=== PATIENT | female | born 1940 | race Caucasian/White ===

== ENCOUNTER 2016-07-14 09:52 | Outpatient (CLI) | END 2016-07-14 09:53 | disposition home or self-care (01) | LOC: NONPT 09:52 | PROVIDERS: ATTEND Family Medicine | DX: R19.7 Diarrhea, unspecified (principal) | CPT/HCPCS: 87015; 87045; 87493; 87899 ==

== ENCOUNTER 2016-12-05 11:56 | Outpatient (CLI) ==
--- NOTE | 2016-12-05 14:52 | MRI ---
EXAM: MRI right shoulder without contrast COMPARISON: None available. HISTORY: Posterior shoulder pain for 6 months. No known injury. TECHNIQUE: Multiplanar noncontrast MR images of the right shoulder were acquired using a 1.2 Fernanda magnet. FINDINGS: There is marked subscapularis tendinosis. Partial-thickness tear. Intrasubstance compon ent possible articular surface involvement involving the distal subscapularis involving approximatel y 50% of the tendon thickness. No full-thickness tear at that level. Moderately severe supraspinat us mild infraspinatus tendinosis with bursal surface fraying of the supraspinatus. Partial-thicknes s/rim rent tear involving insertional fibers of the supraspinatus measuring 3 mm medial to lateral d imension and involving approximally 50% of the tendon thickness. No definite full-thickness tear. Fluid in the subacromial/subdeltoid bursa. Limited assessment of the glenoid labrum on this non arthrographic study with grossly unremarkable a ppearance of the labrum. No paralabral cyst. Mild degenerative changes of the glenohumeral joint. No evidence of an acute fracture or dislocation. Physiologic amount of fluid within the joint. The long head of the biceps is located within the bicipital groove and is intact. Mild hypertrophic degenerative changes of the acromioclavicular joint without evidence of an os acro miale or abnormal widening of the acromioclavicular joint space. No soft tissue mass identified. IMPRESSION: 1. Moderate to marked rotator cuff tendinosis. Partial-thickness tearing of the supraspinatus and subscapularis as described without a full-thickness tear or tendon retraction. 2. Small amount of fluid in the subacromial/subdeltoid bursa. 3. Mild degenerative changes of the acromioclavicular joint.
== END 2016-12-05 11:57 | disposition home or self-care (01) ==
LOC: RAD 11:56
PROVIDERS: ATTEND Family Medicine
DX: M25.511 Pain in right shoulder (principal)

== ENCOUNTER → 2016-12-18 | Outpatient (POV) | payer OTHER | LOC: OUTPT 00:01 | PROVIDERS: ATTEND Otolaryngology | DX: H72.91 Unspecified perforation of tympanic membrane, right ear (principal) | CPT/HCPCS: 92553; 92567 ==

== ENCOUNTER 2016-12-26 09:17 | Day surgery (SDC) ==
[2016-12-26] MEDS ORDERED: LIDOCAINE 1% 20 ML MDV ONE (10:24)
[2016-12-26] MEDS ORDERED: LIDOCAINE 1% 2ML (SURGERY ONLY) ID ONE (10:24)
[2016-12-26] MEDS ORDERED: SUBLIMAZE ONE (10:55)
[2016-12-26] MEDS ORDERED: DIPRIVAN 20 ML VIAL IVP ONE (10:55)
[2016-12-26] MEDS ORDERED: VERSED ONE (10:55)
[2016-12-26] MEDS ORDERED: LIDOCAINE 1%-EPI 1:100,000 10 ML (SURGERY) INJ ONE (10:57)
[2016-12-26] MEDS ORDERED: NEOSPORIN OINT 0.9 GM PACKET TP ONE (11:00)
[2016-12-26 12:21] VITALS: BP 139/75; TEMP 97.7
--- NOTE | 2017-01-01 10:10 | OP ---
PREOPERATIVE DIAGNOSIS: RIGHT TYMPANIC MEMBRANE PERFORATION. POSTOPERATIVE DIAGNOSIS: RIGHT TYMPANIC MEMBRANE PERFORATION. OPERATION: RIGHT TYPE 1 TYMPANOPLASTY. DESCRIPTION OF PROCEDURE: The patient was taken to surgery, placed on the table and general anesthesia was administered. The right ear was prepped and draped in the usual manner. 1 % Xylocaine to 100,000 Epinephrine was injected in the external ear canal as well as tragus. A tragal perichondrial graft was obtained. The edges of the perforation were freshened up with straight pick. A myringotomy site was performed. A tympanomeatal flap was created between approximately six and twelve o'clock. Dissection was carried down to the annulus and the annulus was elevated. The middle ear was filled with pledget of [place]. The perichondrial graft was cut to proper size and tucked up against the surface of the drum. The ear canal was filled with antibiotic ointment and the annulus placed back in its anatomical position. After antibiotic ointment was inserted, incision site was closed using 6-0 Chromic suture and the patient was then extubated and returned to the recovery room in satisfactory condition. CC: DR. MCBRIDE . JULIO CÉSAR
== END 2016-12-26 12:29 | disposition home or self-care (01) ==
LOC: SURG 09:17
PROVIDERS: ATTEND Otolaryngology
DX: H72.91 Unspecified perforation of tympanic membrane, right ear (principal)

== ENCOUNTER → 2017-02-12 | Outpatient (POV) | LOC: OUTPT 00:01 | PROVIDERS: ATTEND Otolaryngology | DX: H72.90 Unspecified perforation of tympanic membrane, unspecified ear (principal); Z98.890 Other specified postprocedural states ==

== ENCOUNTER 2017-12-23 13:04 | Outpatient (CLI) ==
--- NOTE | 2017-12-23 13:43 | DI ---
EXAM: Two views of the chest. History: Chest pain. Comparison: Chest radiograph 03/09/2016 Findings: Heart size is within normal limits. No focal consolidation. No appreciable pleural fluid and no pneumothorax. No acute osseous abnormalities. Impression: No acute cardiopulmonary process
== END 2017-12-23 13:05 | disposition home or self-care (01) ==
LOC: RAD 13:04
PROVIDERS: ATTEND Family Medicine
DX: R07.9 Chest pain, unspecified (principal); Z87.891 Personal history of nicotine dependence

== ENCOUNTER 2018-04-22 11:06 | Outpatient (POV) | payer OTHER | END 2018-04-22 17:00 | LOC: OUTPT 11:06 | PROVIDERS: ATTEND Otolaryngology | DX: R42 Dizziness and giddiness (principal) | CPT/HCPCS: 92557 ==

== ENCOUNTER 2018-10-01 10:00 | Outpatient (RCR) ==
--- NOTE | 2018-09-12 14:10 | RS.OPPTEV2 ---
Date of Note: 09/11/18 Visit #: 1 Number of visits approved by Insurance: NA Date of Evaluation: 09/11/18 Payer Source: MEDICARE Date of Onset/Injury/Change in Status: 09/05/18 Surgery Performed?: No Treatment Diagnosis: Low back and upper back/shoulder pain History of Condition/Mechanism of Injury:: Mrs. Sawyer reports having low back and shoulder/upper back pain since 2016. States she has Fibromyalgia and is sore all over. Prior Level of Function.....Patient was independent with: ADL's, Self Care, Caregiving, Ambulation/Mobility, Community Integration/Access Functional Limitations: Sleep, ADL's, Lifting, Carrying, Standing, Ambulation, Community Access/Integration Current Subjective/complaints:: Patient reports just getting started with Pain Management. She reports last week she was in bed for three days because of the weather. States she is sore to the touch all over and has pain in the low back and upper back/shoulders. Reports walking very far causes increased back pain and the feeling of weakness in her legs. States she has difficulty performing housework such as sweeping, due to back pain. Medical History Medical History: Arthritis Medical History Comments:: Fibromyalgia Diagnostic Testing/Imaging:: Xray of lumbar spine on 03/09/16: Impression: " Chronic discogenic degenerative disease and facet arthrosis." Hx Home Medications: venlafaxine, pravastatin, gabapentin, diazepam, Percocet, Trazodone, Vitamin D3, AREDS2, Xzal Patient's Goals: Her goal is to get some relief of back and shoulder pain. Pain Assessment - Pain Description Pain Location: low back and shoulders/upper back Pain Description: Aching Current Pain Intensity: 8/10 Worst Pain Intensity: 8/10 Functional Outcome Measure Oswestry LBP: 30 - G Codes & Severity Modifier G Codes & Modifier: NA Source of G Code score: Na Observation - Observation Posture: Forward Head, Rounded Shoulders, Decreased Lumbar Lordosis, Posterior Pelvic Tilt Comments: Bilateral genu valgus. Handedness: Right Gait - Gait Pattern Gait Comments: Patient ambulates without an assistive device with a short stride and narrow base of support. She demonstrates a slightly flexed posture at the lumbar spine with ambulation. - ROM Comments: Lumbar flexion is WFL's, Extension is WFL's. Lateral flexion and lower trunk rotation are bilaterally 50-75% of normal range. Patient reports increased discomfort with flexion, extension, and lateral flexion to the right. Bilateral LE AROM is WFL's. Cervical AROM is WFL's into flexion and extension. Left rotation is approximately 60% or normal range. Right rotation is 80% of normal range. Bilateral UE AROM is WFL's. - Strength Trunk Lateral Flexion: 4 Good Trunk Rotation: 4- Good- Comments: Bilateral LE's are 4/5 throughout. Bilateral shoulder strength 3+ to 4-/5, elbows 4/5, wrist 4/5. Residential Assistant strength on the Right 25 lbs, Left 27 lbs. - Special Tests SLR Test: Negative Left, Negative Right Seated Dural Stretch Test: Negative Left, Negative Right Comments: Tender with Pelvis compression, unable to determine Positive test Palpation Comments:: Patient reports diffuse tenderness throughout her UE's, LE's and spine. She reports tenderness with palpation to the SI joints, the lumbar spinous processes, and paraspinals. The right lumbar paraspinals demonstrates moderate muscle guarding. Only slight increased tone noted on the left paraspinals. She demonstrates marked increased muscle tone in the upper and middle traps. She also reports diffuse tenderness throughout the GH joint bilaterally. Sensation - Sensation Right Upper Extremity: Intact/Normal Left Upper Extremity: Intact/Normal Right Lower Extremity: Intact/Normal Left Lower Extremity: Intact/Normal Additional Comments: Additional Comments: SLR bilaterally to 50 degrees in supine. Interventions - Exercise/Activities/Manual Therapy Exercises/Activities: Patient instructed in hip adduction isometric w/ pillow in supine or sitting, alternate bent knee lifts in hooklying, and scapular retraction. Manual Therapy: Na HOME EXERCISE PROGRAM: hip adduction isometric w/ pillow in supine or sitting, alternate bent knee lifts in hooklying, and scapular retraction. - Charges Timed Code Treatment Minutes: 7 mins Total Treatment Time: 50 mins Procedures billed for this date of service:: EVAL Medium EVALUATION COMPLEXITY LEVEL EVALUATION COMPLEXITY LEVEL: HISTORY: Medium (Fibromyalgia (per patient), Chronic back pain), EXAM OF BODY SYSTEMS: Medium (ROM, strength, pain, regions of neck/shoulders and lumbar), CLINICAL PRESENTATION: Medium, CLINICAL DECISION MAKING: Medium Assessment Assessment: Mrs. 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 She presents today with reports also of shoulder and upper back pain. She exhibits pain with ROM at the cervical and lumbar spine and exhibits general weakness througout the trunk, shoulders, and LE's. She reports difficulty walking community distances due to increased back pain. She demonstrates potential to benefit from skilled therapy to improve her strength and reduce her pain. Patient Education: Education of diagnosis, Body/Joint mechanics, Home Exercise Program, Home Safety, Activity Modification, Education of Plan of Care Rehab Potential: Good Problems/Comments: Message left with Dr. Lujan's office regarding patient's reports of upper back/shoulder pain and asked if they would want to include that area on her order for treatment. Short Term Goals Goal #1: Patient independent and compliant with HEP. Goal to be met by: 09/26/18 Goal #2: Trunk strength increased to 4/5. Goal to be met by: 09/26/18 Goal #3: Bilateral hip strength grossly 4+/5. Goal to be met by: 09/26/18 Trade Show Specialist Goals Goal #1: Pt knows HEP and to continue ex's to maintain prior level of function. Goal to be met by: 10/17/18 Goal #2: Score on Oswestry LBP scale improved to 15% impairment. Goal to be met by: 10/17/18 Goal #3: Pt to walk community distances with minimal back pain. Goal to be met by: 10/17/18 Goal #4: Pt able to perform light housework with minimal pain. Goal to be met by: 10/17/18 Plan - Treatment to be Provided Procedures: Therapeutic Exercises, Manual Therapy, Patient Education Modalities: Electrical Stimulation, Cryotherapy, Hot Packs - Treatment Plan Frequency: 2 X week Duration: 4 weeks Dates of [facility] Goals: 10/17/18 Expiration date of current Insurance Approval:: NA - Treatment Code (1) Low back pain Code(s): M54.5 - LOW BACK PAIN Qualifiers: Chronicity: chronic Back pain laterality: unspecified Sciatica presence: unspecified whether sciatica present Qualified Code(s): M54.5 - Low back pain ; G89.29 - Other chronic pain (2) Upper back pain Code(s): M54.9 - DORSALGIA, UNSPECIFIED Comments: M54.9
--- NOTE | 2018-09-15 16:41 | RS.OPPTDN ---
Subjective Date of Note: 09/15/18 Visit #: 2 Number of visits approved by Insurance: 2x4 Date of Evaluation: 09/11/18 Payer Source: MEDICARE Treatment Diagnosis: Low back and upper back/shoulder pain Current Subjective/complaints:: Patient says pain is across the low back equally. She says LE pain is only related to fibromyalgia. She says she has not used heat for her back. She says colder, damp weather does bother her back quite a bit. - Treatment Modality: Electrical Stim Unattended Parameters/Method Applied: hivolt 4 small pads uncrossed to the lower lumbar paraspinals @ 60-90 pk volts x 20 mins Patient Position: Right Sidelying - Heat/Cryotherapy Treatment: Hot Pack Interventions - Exercise/Activities/Manual Therapy Exercises/Activities: Patient receives gentle passive stretching for SKTC, HS, Piriformis, and lower trunk rotation bilaterally x 3. She performs: pillow squeezes, isometric hip abd/add x 10. Discussed postural mechanics and instructed in scapular exercises. Total minutes of Exercise: 17 Manual Therapy: Na HOME EXERCISE PROGRAM: hip adduction isometric w/ pillow in supine or sitting, alternate bent knee lifts in hooklying, and scapular retraction. - Charges Timed Code Treatment Minutes: 17 Total Treatment Time: 37 Procedures billed for this date of service:: hp, estim (un), ex Assessment: Patient began modality treatment today to the low back and appeared to rebecca well. She is having pain equal back pain to the lumbar region. Fibro symptoms to the LEs. She seemed to rebecca all therex well, but did demo stiffness with SKTC and somewhat resisted during stretch. Patient Education: Education of diagnosis, Body/Joint mechanics, Home Exercise Program, Education of Plan of Care Patient demonstrates compliance with HEP?: Yes (initial HEP) Short Term Goals Goal #1: Patient independent and compliant with HEP. Goal to be met by: 09/26/18 Progress towards Goal:: Progressing Goal #2: Trunk strength increased to 4/5. Goal to be met by: 09/26/18 Goal #3: Bilateral hip strength grossly 4+/5. Goal to be met by: 09/26/18 Detention Goals Goal #1: Pt knows HEP and to continue ex's to maintain prior level of function. Goal to be met by: 10/17/18 Goal #2: Score on Oswestry LBP scale improved to 15% impairment. Goal to be met by: 10/17/18 Goal #3: Pt to walk community distances with minimal back pain. Goal to be met by: 10/17/18 Goal #4: Pt able to perform light housework with minimal pain. Goal to be met by: 10/17/18 Plan Dates of Detention Goals: 10/17/18 Expiration date of current Insurance Approval:: 10/17/18 PLAN: Patient to continue for modalities to ease back pain and therex to improve flexibility and trunk strength.
--- NOTE | 2018-09-17 14:55 | RS.OPPTDN ---
Subjective Date of Note: 09/17/18 Visit #: 3 Number of visits approved by Insurance: Reassess at 10th Date of Evaluation: 09/11/18 Payer Source: MEDICARE Treatment Diagnosis: Low back and upper back/shoulder pain Current Subjective/complaints:: Patient says treatment helped her at previous session. She says her back pain was less and she is using heating pad at home with relief as well. She says she is still working on HEP. - Treatment Modality: Electrical Stim Unattended Parameters/Method Applied: hivolt 4 small pads uncrossed to the lumbar paraspinals @ 135-160 pk volts x 20 mins Patient Position: Right Sidelying - Heat/Cryotherapy Treatment: Hot Pack Comments:: cervical HP across the lowback with estim Interventions - Exercise/Activities/Manual Therapy Exercises/Activities: Patient receives gentle passive stretching for SKTC, HS, Piriformis, and lower trunk rotation bilaterally x 3. She performs: pillow squeezes, isometric hip abd/flexion x 10. QS x 10 bilaterally, Discussed postural mechanics and instructed in scapular exercises. Total minutes of Exercise: 18 Manual Therapy: Na HOME EXERCISE PROGRAM: hip adduction isometric w/ pillow in supine or sitting, alternate bent knee lifts in hooklying, and scapular retraction. - Charges Timed Code Treatment Minutes: 18 Total Treatment Time: 38 Procedures billed for this date of service:: hp, estim (un), ex Assessment: Patient appears to be responding to treatment as she is admitting improved pain level to the low back and demo improved ease with receiving passive stretching allowing increased mobility during SKTC and HS bilaterally. Patient Education: Education of diagnosis, Home Exercise Program Patient demonstrates compliance with HEP?: Yes Short Term Goals Goal #1: Patient independent and compliant with HEP. Goal to be met by: 09/26/18 Progress towards Goal:: Progressing Goal #2: Trunk strength increased to 4/5. Goal to be met by: 09/26/18 Goal #3: Bilateral hip strength grossly 4+/5. Goal to be met by: 09/26/18 Visual Educator Goals Goal #1: Pt knows HEP and to continue ex's to maintain prior level of function. Goal to be met by: 10/17/18 Goal #2: Score on Oswestry LBP scale improved to 15% impairment. Goal to be met by: 10/17/18 Goal #3: Pt to walk community distances with minimal back pain. Goal to be met by: 10/17/18 Goal #4: Pt able to perform light housework with minimal pain. Goal to be met by: 10/17/18 Plan Dates of Visual Educator Goals: 10/17/18 Expiration date of current Insurance Approval:: 10/17/18 PLAN: Patient to continue with modalities and therex for LBP
--- NOTE | 2018-09-22 13:24 | RS.OPPTDN ---
Subjective Date of Note: 09/22/18 Visit #: 4 Number of visits approved by Insurance: 2x4 Date of Evaluation: 09/11/18 Payer Source: MEDICARE Treatment Diagnosis: Low back and upper back/shoulder pain Current Subjective/complaints:: Patient says her back pain is lessening. She says she feels therapy is helping her a lot. She says she has been able to get outside and enjoy the weather with less difficulty regarding her back pain. - Treatment Modality: Electrical Stim Unattended Parameters/Method Applied: 4 small pads uncrossed to the lower lumbar paraspinals @ 135-160 pk volts x 20 mins Patient Position: Right Sidelying - Heat/Cryotherapy Treatment: Hot Pack Interventions - Exercise/Activities/Manual Therapy Exercises/Activities: Patient receives gentle passive stretching for SKTC, HS, Piriformis, and lower trunk rotation bilaterally x 3. She performs: pillow squeezes, isometric hip abd/flexion x 10. QS x 10 bilaterally, began bridging 2x5. Sat at [facility] for scap retraction with red tband x 10. Patient instructed to try bridging at home since she performed correctly here and had no difficulty. Discussed postural mechanics and reviewed scapular exercises. Total minutes of Exercise: 17 Manual Therapy: Na HOME EXERCISE PROGRAM: hip adduction isometric w/ pillow in supine or sitting, alternate bent knee lifts in hooklying, and scapular retraction. - Charges Timed Code Treatment Minutes: 17 Total Treatment Time: 37 Procedures billed for this date of service:: hp, estim (un),ex Assessment: Patient responding to treatment as she is experiencing less LBP and admits feeling relief after todays session as well. She is working on HEP consistently and we did add bridging for home. She is less guarded today throughout passive stretching and demo less muscle guarding to the low back compared to last week. Patient Education: Education of diagnosis, Home Exercise Program, Education of Plan of Care Patient demonstrates compliance with HEP?: Yes Short Term Goals Goal #1: Patient independent and compliant with HEP. Goal to be met by: 09/26/18 Progress towards Goal:: Progressing Goal #2: Trunk strength increased to 4/5. Goal to be met by: 09/26/18 Goal #3: Bilateral hip strength grossly 4+/5. Goal to be met by: 09/26/18 Construction Project Coordinator Goals Goal #1: Pt knows HEP and to continue ex's to maintain prior level of function. Goal to be met by: 10/17/18 Goal #2: Score on Oswestry LBP scale improved to 15% impairment. Goal to be met by: 10/17/18 Goal #3: Pt to walk community distances with minimal back pain. Goal to be met by: 10/17/18 Goal #4: Pt able to perform light housework with minimal pain. Goal to be met by: 10/17/18 Plan Dates of [facility] Goals: 10/17/18 Expiration date of current Insurance Approval:: 10/17/18 PLAN: Patient to continue with modalities and therex to strengthen the trunk muscles and scapula to assist with posture.
--- NOTE | 2018-09-24 13:24 | RS.OPPTDN ---
Subjective Date of Note: 09/24/18 Visit #: 5 Number of visits approved by Insurance: 2x4 Date of Evaluation: 09/11/18 Payer Source: MEDICARE Treatment Diagnosis: Low back and upper back/shoulder pain Current Subjective/complaints:: Patient says she had increased pain to her low back yesterday. She says otherwise she is feeling much better with therapy today indicating "barely any pain at all." She plans to clean her house today and mentions dry mopping seems to be the hardest task for her back. - Treatment Modality: Electrical Stim Unattended Parameters/Method Applied: 4 small pads IFC @ 16-18 pk volts x 20 mins to the lumbar paraspinals Patient Position: Right Sidelying - Heat/Cryotherapy Treatment: Hot Pack Interventions - Exercise/Activities/Manual Therapy Exercises/Activities: Patient receives gentle passive stretching for SKTC, HS, Piriformis, and lower trunk rotation bilaterally x 3. She performs: ball squeezes, isometric hip abd/flexion x 10. QS x 10 bilaterally, continued bridging 2x5. Sat at [facility] for scap retraction with red tband x 10. Patient provided red tband for scap retraction and hooklying hip abd for home. Patient verbalizes understanding these additional activities. Total minutes of Exercise: 21 Manual Therapy: Na HOME EXERCISE PROGRAM: hip adduction isometric w/ pillow in supine or sitting, alternate bent knee lifts in hooklying, and scapular retraction. - Charges Timed Code Treatment Minutes: 21 Total Treatment Time: 41 Procedures billed for this date of service:: hp, estim (un), ex Assessment: Ashia received IFC estim today instead of hivolt to increase the area of pain in which she indicated and apply a more comfortable setting. She voiced improvement at the end of session admitting no pain at all. She demo increased flexibility with bilateral LE. stretching primarily with SKTC demo less guarding also with HS. Discussed house cleaning tasks and taking breaks when mopping as this is the hardest for her to rebecca as well as getting a small stool to dust lower to the floor items so that she may sit and complete task instead of leaning and bending over. Patient Education: Education of diagnosis, Body/Joint mechanics, Home Exercise Program Patient demonstrates compliance with HEP?: Yes Short Term Goals Goal #1: Patient independent and compliant with HEP. Goal to be met by: 09/26/18 Progress towards Goal:: Progressing Goal #2: Trunk strength increased to 4/5. Goal to be met by: 09/26/18 Progress towards Goal:: Progressing Goal #3: Bilateral hip strength grossly 4+/5. Goal to be met by: 09/26/18 Progress towards Goal:: Progressing [facility]pc Goals Goal #1: Pt knows HEP and to continue ex's to maintain prior level of function. Goal to be met by: 10/17/18 Goal #2: Score on Oswestry LBP scale improved to 15% impairment. Goal to be met by: 10/17/18 Goal #3: Pt to walk community distances with minimal back pain. Goal to be met by: 10/17/18 Goal #4: Pt able to perform light housework with minimal pain. Goal to be met by: 10/17/18 Plan Dates of [facility] Goals: 10/17/18 Expiration date of current Insurance Approval:: 10/17/18 PLAN: Patient to receive modalities, but wean off of them to more progressive therex for the mid and low back.
--- NOTE | 2018-09-29 12:01 | RS.OPPTDN ---
Subjective Date of Note: 09/29/18 Visit #: 6 Number of visits approved by Insurance: 8 Date of Evaluation: 09/11/18 Payer Source: MEDICARE Treatment Diagnosis: Low back and upper back/shoulder pain Current Subjective/complaints:: Patient says she is more sore today. Reports she believes the damp weather is affecting her back. She says therapy has been helping her and is pleased with her progress so far. - Treatment Modality: Electrical Stim Unattended Parameters/Method Applied: hivolt 4 small pads at 190-200 pk volts x 20 mins to the lumbar and lower thoracic paraspinals. - Heat/Cryotherapy Treatment: Hot Pack Interventions - Exercise/Activities/Manual Therapy Exercises/Activities: Patient receives gentle passive stretching for SKTC, HS, Piriformis, and lower trunk rotation bilaterally x 3. She performs: ball squeezes, isometric hip abd/flexion x 10. QS x 10 bilaterally, continued bridging 2x10. Added SLR 2x5 bilaterally. Sat at [facility] for scap retraction progressed to green tband x 10. 1# wand for bilateral shoulder flexion x 10. Total minutes of Exercise: 17 Manual Therapy: Na HOME EXERCISE PROGRAM: hip adduction isometric w/ pillow in supine or sitting, alternate bent knee lifts in hooklying, and scapular retraction. - Charges Timed Code Treatment Minutes: 17 Total Treatment Time: 37 Procedures billed for this date of service:: hp, estim (un), ex Assessment: Patient experiencing increase ache today to the low back, but feels it is brought on by damp weather. She indicates relief of pain with treatment today. She demo improved flexibility with SKTC and piriformis today as well as better range with lower trunk rotation. She continues to demo forward flexed posture, but does correct posture when cued and is progressing with mid back therex. Patient Education: Education of diagnosis, Home Exercise Program, Education of Plan of Care Patient demonstrates compliance with HEP?: Yes Short Term Goals Goal #1: Patient independent and compliant with HEP. Goal to be met by: 09/26/18 Progress towards Goal:: Progressing Goal #2: Trunk strength increased to 4/5. Goal to be met by: 09/26/18 Progress towards Goal:: Progressing Goal #3: Bilateral hip strength grossly 4+/5. Goal to be met by: 09/26/18 Progress towards Goal:: Progressing Escrow Secretary Goals Goal #1: Pt knows HEP and to continue ex's to maintain prior level of function. Goal to be met by: 10/17/18 Goal #2: Score on Oswestry LBP scale improved to 15% impairment. Goal to be met by: 10/17/18 Goal #3: Pt to walk community distances with minimal back pain. Goal to be met by: 10/17/18 Goal #4: Pt able to perform light housework with minimal pain. Goal to be met by: 10/17/18 Plan Dates of Escrow Secretary Goals: 10/17/18 Expiration date of current Insurance Approval:: 10/17/18 PLAN: Continue BIW working on postural and low back exercises.
--- NOTE | 2018-10-01 11:30 | RS.OPPTDN ---
Subjective Date of Note: 10/01/18 Visit #: 7 Number of visits approved by Insurance: 8 Date of Evaluation: 09/11/18 Payer Source: MEDICARE Treatment Diagnosis: Low back and upper back/shoulder pain Current Subjective/complaints:: Patient says she felt treatment has been helping , but more sore today and feels she is at a standstill. Patient reports she was able to dry mop her house this week (which is the most difficult for her) with rests and less anticipated pain level. Pain Assessment - Pain Description Pain Location: 5/10 prior to treatment. 3/10 afterwards. Lower thoracic/ lumbar region equally both sides - Treatment Modality: Ultrasound Parameters/Method Applied: Continuous @ 1.5 w/cm2 x 12 mins to bilateral lumbar and lower thoracic paraspinals. Comments: PT approved u/s for Mrs. Sawyer today as she continues with moderate LBP. Contras were verified and patient denies any of these to hinder this modality. Interventions - Exercise/Activities/Manual Therapy Exercises/Activities: Patient receives gentle passive stretching for SKTC, HS, Piriformis, figure 4, and lower trunk rotation bilaterally x 3. She performs: ball squeezes, isometric hip abd/flexion x 10. QS x 10 bilaterally, continued bridging 2x10. SLR 2x5 bilaterally. Sat at [facility] for scap retraction green tband x 10. 1# wand for bilateral shoulder flexion x 10. Ultrasound was explained to pt and discussed benefits. Patient understands and eager to attempt. Total minutes of Exercise: 16 Manual Therapy: Na HOME EXERCISE PROGRAM: hip adduction isometric w/ pillow in supine or sitting, alternate bent knee lifts in hooklying, and scapular retraction. - Charges Timed Code Treatment Minutes: 28 Total Treatment Time: 48 Procedures billed for this date of service:: hp, u/s, ex Assessment: Patient demo improved flexibility for the R LE with all stretches with exception of figure 4 demo tightness. Pt has intermittent spasms during piriformis stretching to the L and continues to be guarded with passive SKTC on this side as well. Treatment was modified from estim to u/s to verify any further pain relief. She did express less pain following session today. Patient Education: Education of diagnosis, Home Exercise Program, Education of Plan of Care Patient demonstrates compliance with HEP?: Yes Short Term Goals Goal #1: Patient independent and compliant with HEP. Goal to be met by: 09/26/18 Progress towards Goal:: Progressing Goal #2: Trunk strength increased to 4/5. Goal to be met by: 09/26/18 Progress towards Goal:: Progressing Goal #3: Bilateral hip strength grossly 4+/5. Goal to be met by: 09/26/18 Progress towards Goal:: Progressing Eeg Technician Goals Goal #1: Pt knows HEP and to continue ex's to maintain prior level of function. Goal to be met by: 10/17/18 Goal #2: Score on Oswestry LBP scale improved to 15% impairment. Goal to be met by: 10/17/18 Goal #3: Pt to walk community distances with minimal back pain. Goal to be met by: 10/17/18 Goal #4: Pt able to perform light housework with minimal pain. Goal to be met by: 10/17/18 Plan Dates of Intermediate Goals: 10/17/18 Expiration date of current Insurance Approval:: 10/17/18 PLAN: Patient returns to the MD tomorrow. She has 1 remaining session.
== END 2018-10-05 23:59 | disposition short-term general hospital (02) ==
PROVIDERS: ATTEND Radiology Diagnostic Radiology
DX: M47.816 Spondylosis without myelopathy or radiculopathy, lumbar region (principal)

== ENCOUNTER 2018-10-27 10:00 | Outpatient (RCR) ==
--- NOTE | 2018-10-06 13:04 | RS.OPPTDN ---
Subjective Date of Note: 10/06/18 Visit #: 8 Number of visits approved by Insurance: NA Date of Evaluation: 09/11/18 Payer Source: MEDICARE Treatment Diagnosis: Low back and upper back/shoulder pain Current Subjective/complaints:: Patient reports treatment has helped reduce her pain and she is able to do more daily activities at home. She reports seeing physician end of last week and being told to continue therapy. Pain Assessment - Pain Description Pain Location: lowback Current Pain Intensity: 4/10 - Treatment Modality: Electrical Stim Unattended Parameters/Method Applied: [id number] HVGC to 145p.v. 4 large pads cross current to the bilateral lumbar paraspinals with HP. Patient Position: Right Sidelying - Heat/Cryotherapy Treatment: Hot Pack (with Estim ) Interventions - Exercise/Activities/Manual Therapy Exercises/Activities: Assisted stretching for SKTC, HS, Piriformis, figure 4, and lower trunk rotation bilaterally. Isometric ball squeezes, isometric hip abd , isometric hip flexion. Instructed in pelvic tilt. Bridging. SLR 2s/10reps. bilaterally. Sitting at [facility] for scap retraction red tband 2s/10reps. Total minutes of Exercise: 14mins Manual Therapy: Na HOME EXERCISE PROGRAM: hip adduction isometric w/ pillow in supine or sitting, alternate bent knee lifts in hooklying, and scapular retraction. - Charges Timed Code Treatment Minutes: 14mins Total Treatment Time: 37mins Procedures billed for this date of service:: HP, Estim unattended, EX Assessment: Patient reporting progress in pain level and in ability to perform functional activities in her home. Patient Education: Body/Joint mechanics, Home Exercise Program Patient demonstrates compliance with HEP?: Yes Short Term Goals Goal #1: Patient independent and compliant with HEP. Goal to be met by: 09/26/18 Progress towards Goal:: Progressing Goal #2: Trunk strength increased to 4/5. Goal to be met by: 09/26/18 Progress towards Goal:: Progressing Goal #3: Bilateral hip strength grossly 4+/5. Goal to be met by: 09/26/18 Progress towards Goal:: Progressing Belt Polisher Goals Goal #1: Pt knows HEP and to continue ex's to maintain prior level of function. Goal to be met by: 10/17/18 Goal #2: Score on Oswestry LBP scale improved to 15% impairment. Goal to be met by: 10/17/18 Goal #3: Pt to walk community distances with minimal back pain. Goal to be met by: 10/17/18 Progress towards goal: Progressing Goal #4: Pt able to perform light housework with minimal pain. Goal to be met by: 10/17/18 Plan Dates of Belt Polisher Goals: 10/17/18 Expiration date of current Insurance Approval:: 10/17/18 PLAN: WIll hold chart pending continuation orders. Patient with be reassessed by PT.
--- NOTE | 2018-10-08 10:49 | RS.PTSUM ---
Progress Note/Summary Date of Note: 10/08/18 Date of Evaluation: 09/11/18 Number of Visits: 9 Number of visits approved by Insurance: Na Reporting Period for this Progress Note: 09/11/18 through 10/08/18 Current Complaints/Gains: Reports shoulder pain, but points to upper trap area. States "they say I have Fibromyalgia" when asked if she is tender. States she is sore throughout her neck and back. Reports feeling tightness in her neck and shoulders with neck motion. States if she looks down for too long she will get dizzy. Reports upper back and shoulder pain (upper traps) with use of arms for daily activities. States therapy on her back has helped reduce her pain and she is able to do more activities around her home with less Low back pain. Objective Measurements/Presentation: Order received to continue therapy. Cervical spine was included on the order as requested. Cervical spine rotation to the left continues to be less than to the right, as noted at evaluation. Left rotation is approximately 50-55 degrees, to the right approximately 60-65 degrees. She demonstrates marked muscle guarding throughout the upper traps bilaterally. Middle traps demonstrate minimal increased tone. Reports general tenderness throughout the upper traps and cervical spine. Slight tenderness reported at the base of the skull at the subocciptial myofascia. Patient exhibits a forward head and rounded shoulders posture at rest. She has been receiving therapy to the low back with use of modalities moist heat and E stim, along with stretching and stability exercises. G Codes: NA Source of G Code Score: NA - Short Term Goals Goal #1: Patient independent and compliant with HEP. Goal to be met by: 10/22/18 Progress towards Goal:: Progressing Goal #2: Trunk strength increased to 4/5. Goal to be met by: 10/22/18 Progress towards Goal:: Progressing Goal #3: Bilateral hip strength grossly 4+/5. Goal to be met by: 10/22/18 Progress towards Goal:: Progressing Goal #4: Muscle tone of bilateral upper traps decreased to min-mod. Goal to be met by: 10/22/18 (new goal) - Cellar Worker Goals Goal #1: Pt knows HEP and to continue ex's to maintain prior level of function. Goal to be met by: 10/29/18 Progress towards goal: Partially Met Goal #2: Score on Oswestry LBP scale improved to 15% impairment. Goal to be met by: 10/29/18 Goal #3: Pt to walk community distances with minimal back pain. Goal to be met by: 10/29/18 Progress towards goal: Progressing Goal #4: Pt able to perform daily activities with minimal upper traps/neck pain. Goal to be met by: 10/29/18 - Assessment Assessment of Improvement/Progress: Ashia has made progress toward goals related to her low back pain. Reports reduction in LBP and increased ability with activities. She demonstrates potential to gain more pain relief with continued therapy. Now that we have received order, we will add treatment to her neck to help her gain some relief of neck pain with daily activities and ROM. Summary: Patient has made progress towards goals., Patient demonstrates potential to gain increased function with therapy - Plan Plan: Continue Plan of Care Frequency: 2-3 X week Duration: 3 weeks Dates of Cellar Worker Goals: 10/29/18 Expiration date of current Insurance Approval:: MORE
--- NOTE | 2018-10-08 15:54 | RS.OPPTDN ---
Subjective Date of Note: 10/08/18 Visit #: 9 Number of visits approved by Insurance: NA Date of Evaluation: 09/11/18 Payer Source: MEDICARE Treatment Diagnosis: Low back and upper back/shoulder pain Current Subjective/complaints:: Patient reports a reduction in upper trap pain and muscle tension with treatment today. Pain Assessment - Pain Description Pain Location: shoulders, upper traps, low back Pain Description: Tightness Current Pain Intensity: mod - Treatment Modality: Electrical Stim Unattended Parameters/Method Applied: [id number] HVGC to bilateral upper and lower lumbar paraspinals with 4 large pads, 155p.v. with HP. Patient Position: Sitting - Heat/Cryotherapy Treatment: Hot Pack (with Estim and HP to the upper traps prior to MT. Patient in sitting. ) Interventions - Exercise/Activities/Manual Therapy Exercises/Activities: NA Manual Therapy: 21mins Soft tissue massage and myofascial release to the bilateral upper traps. Total minutes of Manual Therapy: 21mins HOME EXERCISE PROGRAM: hip adduction isometric w/ pillow in supine or sitting, alternate bent knee lifts in hooklying, and scapular retraction. - Objective Findings Observations,measurements,etc.: Patient reassessed by PT and goals updated. - Charges Timed Code Treatment Minutes: 21mins Total Treatment Time: 50mins Procedures billed for this date of service:: HP, Estim unattended, MT Assessment: Patient reports good response to manual therapy to the bilateral upper traps. Patient Education: Home Exercise Program Patient demonstrates compliance with HEP?: Yes Short Term Goals Goal #1: Patient independent and compliant with HEP. Goal to be met by: 10/22/18 Progress towards Goal:: Progressing Goal #2: Trunk strength increased to 4/5. Goal to be met by: 10/22/18 Progress towards Goal:: Progressing Goal #3: Bilateral hip strength grossly 4+/5. Goal to be met by: 10/22/18 Progress towards Goal:: Progressing Goal #4: Muscle tone of bilateral upper traps decreased to min-mod. Goal to be met by: 10/22/18 (new goal) Briar Cutter Goals Goal #1: Pt knows HEP and to continue ex's to maintain prior level of function. Goal to be met by: 10/29/18 Progress towards goal: Partially Met Goal #2: Score on Oswestry LBP scale improved to 15% impairment. Goal to be met by: 10/29/18 Goal #3: Pt to walk community distances with minimal back pain. Goal to be met by: 10/29/18 Progress towards goal: Progressing Goal #4: Pt able to perform daily activities with minimal upper traps/neck pain. Goal to be met by: 10/29/18 Plan Dates of Briar Cutter Goals: 10/29/18 Expiration date of current Insurance Approval:: 10/29/18 PLAN: Continue modalities, manual therapy and progressive exercise to reduce pain and increase patients functional activity level.
--- NOTE | 2018-10-13 14:15 | RS.OPPTDN ---
Subjective Date of Note: 10/13/18 Visit #: 10 Number of visits approved by Insurance: [id number] dated 10/08/18 Date of Evaluation: 09/11/18 Payer Source: MEDICARE Treatment Diagnosis: Low back and upper back/shoulder pain Current Subjective/complaints:: Patient says she is unable to tell if treatment is helping for her upper back and shoulders. She says her shoulders are sore today. She is hopeful this treatment will help as much as it did for her low back. - Treatment Modality: Electrical Stim Unattended Parameters/Method Applied: IFC to the UT and mid thoracic paraspinals @ 11 ma x 20 mins Patient Position: Sitting - Heat/Cryotherapy Treatment: Hot Pack (cervical and across shoulders and mid to low back in sitting with estim) Interventions - Exercise/Activities/Manual Therapy Exercises/Activities: NA Manual Therapy: 20mins Soft tissue massage and myofascial release to the bilateral upper traps. HOME EXERCISE PROGRAM: hip adduction isometric w/ pillow in supine or sitting, alternate bent knee lifts in hooklying, and scapular retraction. - Charges Timed Code Treatment Minutes: 20 Total Treatment Time: 40 Procedures billed for this date of service:: hp, estim (un), MT Assessment: Patient presents with mild soreness to the upper back, neck, and shoulders. She demo mild muscle guarding and trigger points to bilateral UT, with improvement following MT. Some tenderness to this area during MT, but able to rebecca. She experienced improvement with neck rotation to the L after session. Patient Education: Education of diagnosis, Body/Joint mechanics, Home Exercise Program, Education of Plan of Care Patient demonstrates compliance with HEP?: Yes Short Term Goals Goal #1: Patient independent and compliant with HEP. Goal to be met by: 10/22/18 Progress towards Goal:: Progressing Goal #2: Trunk strength increased to 4/5. Goal to be met by: 10/22/18 Progress towards Goal:: Progressing Goal #3: Bilateral hip strength grossly 4+/5. Goal to be met by: 10/22/18 Progress towards Goal:: Progressing Goal #4: Muscle tone of bilateral upper traps decreased to min-mod. Goal to be met by: 10/22/18 (new goal) Product Management Specialist Goals Goal #1: Pt knows HEP and to continue ex's to maintain prior level of function. Goal to be met by: 10/29/18 Progress towards goal: Partially Met Goal #2: Score on Oswestry LBP scale improved to 15% impairment. Goal to be met by: 10/29/18 Goal #3: Pt to walk community distances with minimal back pain. Goal to be met by: 10/29/18 Progress towards goal: Progressing Goal #4: Pt able to perform daily activities with minimal upper traps/neck pain. Goal to be met by: 10/29/18 Plan Dates of Product Management Specialist Goals: 10/29/18 Expiration date of current Insurance Approval:: 10/29/18 PLAN: Patient to continue with new orders BIW
--- NOTE | 2018-10-15 11:35 | RS.OPPTDN ---
Subjective Date of Note: 10/15/18 Visit #: 11 Number of visits approved by Insurance: 14-17, reassessed for 2-3x3 Date of Evaluation: 09/11/18 Payer Source: MEDICARE Treatment Diagnosis: Low back and upper back/shoulder pain Current Subjective/complaints:: Patient says her pain is less and feels estim is helping her. She reports she has difficulty turning her head to the L, but seems to be getting better. - Treatment Modality: Electrical Stim Unattended Parameters/Method Applied: 4 small pads uncrossed Hivolt @ 135-150 pk volts x 20 mins to bilateral UT and lower traps Patient Position: Sitting - Heat/Cryotherapy Treatment: Hot Pack (along with estim ) Interventions - Exercise/Activities/Manual Therapy Exercises/Activities: Gentle passive stretching of cspine for rotation and SB. Isometric cervical retraction 2x5. Shoulder shrugs and scap adduction x 8. Reviewed HEP and postural mechanics. Manual Therapy: 20mins Soft tissue massage and myofascial release to the bilateral upper and mid traps. HOME EXERCISE PROGRAM: hip adduction isometric w/ pillow in supine or sitting, alternate bent knee lifts in hooklying, and scapular retraction. - Charges Timed Code Treatment Minutes: 25 Total Treatment Time: 45 Procedures billed for this date of service:: hp, estim (un), ex Assessment: Patient demo mild increase in mm guarding to the L UT with 1 trigger point. She does demo improvement with guarding and tenderness to this point through MT today. She admits improved ability to L rotation and SB as well. She maintains FHP, but is aware of and performs cervical retraction to improve this posture. Overall neck and shoulder pain is reducing this week. Patient Education: Education of diagnosis, Body/Joint mechanics, Home Exercise Program Patient demonstrates compliance with HEP?: Yes Short Term Goals Goal #1: Patient independent and compliant with HEP. Goal to be met by: 10/22/18 Progress towards Goal:: Progressing Goal #2: Trunk strength increased to 4/5. Goal to be met by: 10/22/18 Progress towards Goal:: Progressing Goal #3: Bilateral hip strength grossly 4+/5. Goal to be met by: 10/22/18 Progress towards Goal:: Progressing Goal #4: Muscle tone of bilateral upper traps decreased to min-mod. Goal to be met by: 10/22/18 (new goal) Intermediate Goals Goal #1: Pt knows HEP and to continue ex's to maintain prior level of function. Goal to be met by: 10/29/18 Progress towards goal: Partially Met Goal #2: Score on Oswestry LBP scale improved to 15% impairment. Goal to be met by: 10/29/18 Goal #3: Pt to walk community distances with minimal back pain. Goal to be met by: 10/29/18 Progress towards goal: Progressing Goal #4: Pt able to perform daily activities with minimal upper traps/neck pain. Goal to be met by: 10/29/18 Plan Dates of Production Line Technician Goals: 10/29/18 Expiration date of current Insurance Approval:: 10/29/18 PLAN: Continue BIW x 2 more weeks
--- NOTE | 2018-10-20 14:25 | RS.OPPTDN ---
Subjective Date of Note: 10/20/18 Visit #: 12 Number of visits approved by Insurance: 14 Date of Evaluation: 09/11/18 Payer Source: MEDICARE Treatment Diagnosis: Low back and upper back/shoulder pain Current Subjective/complaints:: Patient says her shoulders are feeling better and overall upper back pain is improving. She says she can turn her head easier. - Treatment Modality: Electrical Stim Unattended Parameters/Method Applied: 4 small pads to the bilateral UT and lower traps IFC @ 14 ma x 20 mins Patient Position: Sitting - Heat/Cryotherapy Treatment: Hot Pack Comments:: cervical and mid to low back Interventions - Exercise/Activities/Manual Therapy Exercises/Activities: Gentle passive stretching of cspine for rotation and SB. Isometric cervical retraction 2x5. Shoulder shrugs and scap adduction x 8. Bilateral shoulder elevation x 5. Reviewed HEP and postural mechanics. Manual Therapy: 20mins DTM, trigger point work, and myofascial release to the bilateral upper and mid traps. HOME EXERCISE PROGRAM: hip adduction isometric w/ pillow in supine or sitting, alternate bent knee lifts in hooklying, and scapular retraction. - Charges Timed Code Treatment Minutes: 25 Total Treatment Time: 45 Procedures billed for this date of service:: hp, estim (un), MT Assessment: Patient khloe improved mm guarding to bilateral UT and Mid traps today allowing her to have better ease with performing Cspine ROM (SB and rotation) to WFL and less sore. She is pleased at this point with her progress and does khanho improved sitting posture. Patient Education: Home Exercise Program, Education of Plan of Care Patient demonstrates compliance with HEP?: Yes Short Term Goals Goal #1: Patient independent and compliant with HEP. Goal to be met by: 10/22/18 Progress towards Goal:: Progressing Goal #2: Trunk strength increased to 4/5. Goal to be met by: 10/22/18 Progress towards Goal:: Progressing Goal #3: Bilateral hip strength grossly 4+/5. Goal to be met by: 10/22/18 Progress towards Goal:: Progressing Goal #4: Muscle tone of bilateral upper traps decreased to min-mod. Goal to be met by: 10/22/18 (new goal) Care Home Goals Goal #1: Pt knows HEP and to continue ex's to maintain prior level of function. Goal to be met by: 10/29/18 Progress towards goal: Partially Met Goal #2: Score on Oswestry LBP scale improved to 15% impairment. Goal to be met by: 10/29/18 Goal #3: Pt to walk community distances with minimal back pain. Goal to be met by: 10/29/18 Progress towards goal: Progressing Goal #4: Pt able to perform daily activities with minimal upper traps/neck pain. Goal to be met by: 10/29/18 Plan Dates of Track Grinder Goals: 10/29/18 Expiration date of current Insurance Approval:: 10/29/18 PLAN: Continue modaltieis, MT, and postural strengthening.
--- NOTE | 2018-10-22 13:18 | RS.OPPTDN ---
Subjective Date of Note: 10/22/18 Visit #: 13 Number of visits approved by Insurance: 14 Date of Evaluation: 09/11/18 Payer Source: MEDICARE Treatment Diagnosis: Low back and upper back/shoulder pain Current Subjective/complaints:: Patient says her shoulders and neck feel " pretty good" today. Reports she can turn her neck better. States she thinks "the knots are working out." - Treatment Modality: Electrical Stim Unattended Parameters/Method Applied: IFC @ 14 ma x 20 mins to the UT and lower traps Patient Position: Sitting - Heat/Cryotherapy Treatment: Hot Pack (cervical and mid to low back with estim) Interventions - Exercise/Activities/Manual Therapy Exercises/Activities: Gentle passive stretching of cspine for rotation and SB. Isometric cervical retraction 2x5. Shoulder shrugs and scap adduction x 8. Bilateral shoulder elevation x 5. Reviewed HEP and postural mechanics. Manual Therapy: 20mins DTM, trigger point work, and myofascial release to the bilateral upper and mid traps. HOME EXERCISE PROGRAM: hip adduction isometric w/ pillow in supine or sitting, alternate bent knee lifts in hooklying, and scapular retraction. - Charges Timed Code Treatment Minutes: 20 Total Treatment Time: 40 Procedures billed for this date of service:: hp, estim (un), MT Assessment: Patient improving with admission of decreased pain and tightness. She demo less mm guarding throughout the UT and mid traps along with improved Cspine rotation to the L to approximately 80% normal. SB remains tight and produces soreness at end ranges. Less sensistivity noted at L UT trigger point. Patient Education: Body/Joint mechanics, Home Exercise Program, Education of Plan of Care Patient demonstrates compliance with HEP?: Yes Short Term Goals Goal #1: Patient independent and compliant with HEP. Goal to be met by: 10/22/18 Progress towards Goal:: Progressing Goal #2: Trunk strength increased to 4/5. Goal to be met by: 10/22/18 Progress towards Goal:: Progressing Goal #3: Bilateral hip strength grossly 4+/5. Goal to be met by: 10/22/18 Progress towards Goal:: Progressing Goal #4: Muscle tone of bilateral upper traps decreased to min-mod. Goal to be met by: 10/22/18 (new goal) Retirement Goals Goal #1: Pt knows HEP and to continue ex's to maintain prior level of function. Goal to be met by: 10/29/18 Progress towards goal: Partially Met Goal #2: Score on Oswestry LBP scale improved to 15% impairment. Goal to be met by: 10/29/18 Goal #3: Pt to walk community distances with minimal back pain. Goal to be met by: 10/29/18 Progress towards goal: Progressing Goal #4: Pt able to perform daily activities with minimal upper traps/neck pain. Goal to be met by: 10/29/18 Plan Dates of Shipping/Receiving Clerk Goals: 10/29/18 Expiration date of current Insurance Approval:: 10/29/18 PLAN: Patient to attend x 1 more session per order.
--- NOTE | 2018-11-05 10:16 | RS.OPPTDN ---
Subjective Date of Note: 10/27/18 Visit #: 14 Number of visits approved by Insurance: 14 Date of Evaluation: 09/11/18 Payer Source: MEDICARE Treatment Diagnosis: Low back and upper back/shoulder pain Current Subjective/complaints:: Patient says her neck and back pain are much better. She c/o being a "little stumbly" this morning, but says that happens to her a lot. - Treatment Modality: Electrical Stim Unattended Parameters/Method Applied: hivolt 4 small pads @ 125-145 pk volts x 20 mins to the UT and Mid traps Patient Position: Sitting - Heat/Cryotherapy Treatment: Hot Pack Interventions - Exercise/Activities/Manual Therapy Exercises/Activities: Gentle passive stretching of cspine for rotation and SB. Isometric cervical retraction 2x5. Shoulder shrugs and scap adduction x 8. Bilateral shoulder elevation x 5. Reviewed HEP and postural mechanics. Total minutes of Exercise: 6 Manual Therapy: 20mins DTM, trigger point work, and myofascial release to the bilateral upper and mid traps. HOME EXERCISE PROGRAM: hip adduction isometric w/ pillow in supine or sitting, alternate bent knee lifts in hooklying, and scapular retraction. - Charges Timed Code Treatment Minutes: 26 Total Treatment Time: 46 Procedures billed for this date of service:: hp, estim (un) MT Assessment: Patient has made progress regarding initial diagnosis for back pain and also with addition of neck and shoulders. She has had increased awareness of postural correction and therex to improve. She has shown improvement per Oswestry Scale and demo decreased mm guarding and and trigger point is significantly smaller to the L UT. Patient Education: Education of diagnosis, Home Exercise Program Patient demonstrates compliance with HEP?: Yes Short Term Goals Goal #1: Patient independent and compliant with HEP. Goal to be met by: 10/22/18 Progress towards Goal:: Met Goal #2: Trunk strength increased to 4/5. Goal to be met by: 10/22/18 Progress towards Goal:: Met Goal #3: Bilateral hip strength grossly 4+/5. Goal to be met by: 10/22/18 Progress towards Goal:: Met Goal #4: Muscle tone of bilateral upper traps decreased to min-mod. Goal to be met by: 10/22/18 (new goal) Progress towards Goal:: Met [employer] Goals Goal #1: Pt knows HEP and to continue ex's to maintain prior level of function. Goal to be met by: 10/29/18 Progress towards goal: Met Goal #2: Score on Oswestry LBP scale improved to 15% impairment. Goal to be met by: 10/29/18 Progress towards goal: Progressing Goal #3: Pt to walk community distances with minimal back pain. Goal to be met by: 10/29/18 Progress towards goal: Progressing Goal #4: Pt able to perform daily activities with minimal upper traps/neck pain. Goal to be met by: 10/29/18 Progress towards goal: Progressing Plan Dates of Correction Goals: 10/29/18 Expiration date of current Insurance Approval:: 10/29/18 PLAN: Discharge
== END 2018-11-04 23:59 ==
PROVIDERS: ATTEND Radiology Diagnostic Radiology
DX: M47.816 Spondylosis without myelopathy or radiculopathy, lumbar region (principal); M47.812 Spondylosis without myelopathy or radiculopathy, cervical region; M54.5 Low back pain; G89.29 Other chronic pain